=== PATIENT | male | born 1930 | race Caucasian/White ===

== ENCOUNTER → 2017-05-15 | Outpatient (CLI) | payer MEDICARE, BC ==
[~2017-05-15] MED LIST: ASPIRIN PO; ASPIRIN81 M2 PO; CENTRUM PO; COATED ASPIRIN325 M1 PO; COLACE PO; GUAIFENESIN-DM S5 ML PO; IMDUR PO; IMDUR-ER60 MG PO; LASIX PO; LIPITOR20 MG PO; LIPITOR80 MG PO; LISINOPRIL PO; LISINOPRIL20 MG PO; LISINOPRIL5 MG PO; LOPRESSOR PO; METOPROLOL TART25 MG PO; MULTIVITAMIN1 UDCAP PO; NITROSTAT0.4 MG SL; NORVASC PO; PLAVIX PO; TAMIFLU75 M1 PO; VITAMIN D31000 UNIT PO; VYTORIN 10/40 T1 TAB PO
--- NOTE | ~2017-05-15 | US77 ---
[facility] A Service of [facility] & [facility] RADIOLOGY TEXT RESULTS PATIENT: RANDALL ESCOBAR LOCATION: [facility] : 32 UNIT #: [id number] AGE: [address]: Dale Dickey MD SEX: M ORDER DR: [id number] [facility] [address] [place], [place] [address] [id number] O MR#: [id number] Acc #: [id number] NAME: RANDALL ESCOBAR : 1930 SEX: M STUDY DATE/TIME: 05/15/2017 13:39 UNIT: [facility] ROOM: STUDY DESCRIPTION: US Kidney Bilateral Complete Attending Physician: Dale Dickey M.D. Ordering Physician: Dale Dickey M.D. Primary Care Physician: Dario Petit Jr., M.D. MEDICAL IMAGING REPORT This report is preliminary unless electronic signature is present EXAM Bilateral renal ultrasound. HISTORY Bladder cancer. Previous cystectomy. FINDINGS The right kidney is 9.5 cm in length. There is no hydronephrosis. There is a 2.1 cm cyst in the upper pole of the right kidney. Left kidney is 9.4 cm in length and there is upper pole 14 mm cyst. There is no hydronephrosis. The cortex is normal in thickness. Structure that appears to be the bladder is present in the pelvis and has a volume of 234 mL. The prostate appears enlarged measuring 7 cm in diameter. IMPRESSION History states the patient has had a cystectomy. There is a structure that appears to be a bladder in the pelvis above enlarged prostate gland. Both kidneys are normal except for small simple cysts. Dictated by... Yossi Ferrera M.D. THIS IS AN ELECTRONICALLY VERIFIED REPORT Yossi Ferrera M.D. at 05/17/2017 7:12 AM [place] TD: 05/16/2017 10:20 JOB #: [id number] MEDICAL IMAGING REPORT Page 1 of 1 COPY
== END | disposition home or self-care (01) ==
LOC: CWCC 05-12 14:00
DX: C67.2 Malignant neoplasm of lateral wall of bladder (principal); N40.0 Benign prostatic hyperplasia without lower urinary tract symptoms; N28.1 Cyst of kidney, acquired; Z98.890 Other specified postprocedural states
CPT/HCPCS: 76770